=== PATIENT | female | born 1945 | race Two or more races ===

== ENCOUNTER 2019-01-02 04:20 | Day surgery (SDC) | payer OTHER ==
[~2019-01-02 04:20] MED LIST: NORVASC10 MG PO; SYNTHROID50 MCG PO; VASOTEC10 MG PO; ZOCOR20 MG PO
== END 2019-01-02 10:45 | disposition home or self-care (01) ==
LOC: CIR.AMB 04:20 → SURG 08:00 → CIR.AMB 08:00 → EDSTATUS 08:00 → CIR.AMB 08:45
DX: K80.10 Calculus of gallbladder with chronic cholecystitis without obstruction (principal)